=== PATIENT | female | born 1945 | race Caucasian/White ===

== ENCOUNTER 2023-10-20 18:46 | Emergency (ER) | payer OTHER, SELFPAY ==
--- NOTE | 2023-10-20 19:35 | ED.GENMED ---
History of Present Illness
General
Chief Complaint: Musculo-Skeletal Complaint
Source: patient
Exam Limitations: none
Time Seen by Provider: 10/20/23 19:15
Nursing documentation reviewed up to this point in time: agreed with
Travel History
Have you had any contact with someone who has COVID-19?: No
Do you have any symptoms of coronavirus? Fever > 100 degrees, chills, cough, shortness of breath, sore throat, loss of taste or smell, muscle aches, or headache?: No
History of Present Illness
History of Present Illness:
pt is a 78 y/o F right ahnd dominant works at [employer] and was ankit to push a door open when it opened the opposite way on her right hand dorsum ausing pain/swleling to right 3rd metacarpal region
she has h/o arthritis but has never broken her hand before
nothing taken for pain
has pain with turning a knob but can move her fingers and hold things.
she has not had any other injuries, numbness/tingling/weakness.
Past History
Past History
ED Past Medical History: Other (leaky heart valve)
ED Past Surgical History: Orthopedic
Phy Exam
Physical Exam
Physical Exam:
GENERAL: Alert , in no apparent distress, comfortable at rest
HEAD: NCAT
CV: 2+ radial pulse right hand
cap refill fingers intact
NEUROLOGICAL: Alert and oriented, no focal neuro deficits, , 5/5 strength, sensation intact,
SKIN: Warm and dry, minimal bruising dorsum R hand
MUSCULOSKELETAL: swellnig focally around the 3rd MCP joint with tenderness
pt has chronic arthritis changes of fingers
able to flex her MCP joint
no rotational deformity noted
cap refill intact
PSYCH: Normal and appropriate interaction.
Course
Orders/Labs/Results
Orders:
Orders
10/20/23 19:00
Hand, Right 3 View [CR Hand - Right Min 3 Views] Urgent
Comment:
Reason For Exam: swinging door at work hit her right hand
10/20/23 19:28
Acetaminophen [Tylenol] 650 mg PO NOW STA
Vital Signs
Initial and Last Documented VS:
Initial Vital Signs
Temp Pulse Resp Pulse Ox
97.7 F 96 16 97
10/20/23 18:57 10/20/23 18:57 10/20/23 18:57 10/20/23 18:57
Last Documented Vital Signs
Temp Pulse Resp BP Pulse Ox
97.7 F 96 16 154/66 97
10/20/23 18:57 10/20/23 18:57 10/20/23 18:57 10/20/23 19:39 10/20/23 18:57
MDM/Problems Addressed
Differential Diagnosis Includes:
contusion, fracture
MDM/Problems Addressed:
hand contuion vs. fx
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
d/w radiologist, who did not see fracture
pt is tender there and has some limited ROM
will splint with vecro splint for f/u ortho/workman's comp.
*Critical Care Note
Total Time (30-74mins, 75-104mins- exclusive of procedures): Not Applicable
ED Attending Note
-
Portions of this chart may have been created with voice recognition software.� Occasional wrong word or��sound alike� substitutions may have occurred due to the inherent limitations of voice recognition software.
Discharge Plan
Departure
Patient Disposition: Home (Routine Discharge)
Date of Disposition: 10/20/23
Time of Disposition: 19:59
Patient with high blood pressure during this ER visit?: No
Condition: Fair
Covid-19: Not Applicable
Discharge Problem:
Contusion of hand, right, Arthritis of hand
Instructions: Contusion (DC)
Referrals:
Lino Soto MD [Active] - Follow up in 1 week (ORTHO HAND)
Savanna Sheehan MD [Family Provider] - Follow up in 2-3 days
Stand Alone Forms: Return to Work
Activity Restrictions/Additional Instructions:
YOUR XRAY SHOWS SOME ARTHRITIS IN YOUR HAND BUT NO OBVIOUS FRACTURE
WEAR THE BRACE WHILE YOU ARE AWAKE, YOU CAN TAKE IT OFF AT NIGHT
TAKE TYLENOL FOR PAIN NEEDED
YOU WILL NEED CLEARANCE FROM WORKMAN'S COMP TO GO BACK TO WORK
IF YOUR HAND IS STILL BOTHERING YOU, YOU MAY NEED TO SEE A HAND DOCTOR ORTHPEDICS
CALL FOR AN APPOINTMENT OR GO THROUGH [employer]
RETURN FOR ANY CONCERNS.
Interventions
Interventions:
*Risk Screen - Suicide Last Done: 10/20/23 19:41
*General Assessment Last Done: 10/20/23 19:41
*Neglect/Abuse Screening Last Done: 10/20/23 19:41
ED- Fall Risk Assessment Last Done: 10/20/23 19:41
*ED COVID-19 Vaccine History Last Done: 10/20/23 18:57
*Nursing Disposition Last Done: 10/20/23 20:26
ED-Musculoskeletal Assessment Last Done: 10/20/23 19:41
Discharge Date and Time
Discharge Date/Time: 10/20/23 20:26
Print Language: CYMRAES
[2023-10-20] MEDS: TYLENOL 650 MG PO (19:37)
[2023-10-20 19:39] VITALS: BP 154/66
== END 2023-10-20 20:26 | disposition home or self-care (01) ==
LOC: EMR 18:46
PROVIDERS: EMERGENCY PHYSICIAN Emergency Medicine; FAMILY PHYSICIAN Family Medicine
DX: S60.221A Contusion of right hand, initial encounter (principal); W22.09XA Striking against other stationary object, initial encounter; Y99.0 Civilian activity done for income or pay; M19.041 Primary osteoarthritis, right hand
CPT/HCPCS: 99283; 29125; 73130